=== PATIENT | female | born 1990 | race Caucasian/White ===

== ENCOUNTER → 2019-07-08 09:06 | Outpatient (CLI) | payer OTHER, SELFPAY ==
--- NOTE | 2019-07-08 09:11 | DI.US.S_ITS ---
PROCEDURE: US OB >= 14 WEEKS FETUS INDICATIONS: ANATOMY OUTSIDE/PRIOR DATING DATA: Last menstrual period (LMP): 02/13/19. LMP-based estimated date of delivery (LORI): 11/20/19. First dating scan (date and location): 07/08/19. Estimated date of delivery (LORI) from first dating scan: 11/21/19. TECHNIQUE: Real-time scanning was performed of the fetus, with image documentation and biometric measurements. Endovaginal scanning: No COMPARISON: None. FINDINGS: General: A single living intrauterine gestation is present. Presentation: Vertex. Placenta: Placental position is posterior, without previa. Amniotic fluid index: 10.3 cm, normal range is 5-24 cm. heart rate: 163 beats per minute. Maternal cervical canal: 3.8 cm long. Normal lower limit is 2.5 cm. biometrics: Biparietal diameter: 20 weeks 1 day Head circumference: 19 weeks 6 days Abdominal circumference: 20 weeks 5 days Femur length: 21 weeks Estimated gestational age from initial scan: 20 weeks 5 days Composite gestational age from present scan: 20 weeks 4 days Estimated weight and percentile: 372 g; 45th percentile Measurement variability for biometric dating: +/- 7 days from 14 weeks to 15 weeks 6 days gestation, +/- 10 days from 16 weeks to 21 weeks 6 days gestation, +/- 2 weeks from 22 weeks to 27 weeks 6 days gestation, +/- 3 weeks for 28 weeks gestation or later. weight reference: 4500 g or EFW >90/95% is considered macrosomia or large for gestational age. EFW <10% is small for gestational age. EFW 5% or less is considered intra-uterine growth restriction. Anatomic survey: Neuro: Ventricles are non-dilated at less than 10 mm. Cisterna magna is normal at 3-11 mm. Cerebellum is normal in size and morphology. Nuchal skin fold: Normal at less than 6 mm between 14-21 weeks gestational age. Face: Nose and lips, facial profile are normal. Spine: No evidence for spina bifida. Heart: 4-chambered heart is present, with normal ventricular outflow tracts. Diaphragm: Diaphragm is intact. Stomach: Left-sided stomach is present. Kidneys: Right renal pelvis is dilated to 4.6 mm. Normal left renal pelvis and kidney. Normal is less than 5 mm in 2nd trimester, less than 7 mm in 3rd trimester. Cord: 3-vessel cord has orthotopic insertion. Bladder: Normal in size. Extremities: All 4 extremities identified. IMPRESSION: Single living IUP with mean composite gestational age of 20 weeks 4 days corresponding to ultrasound LORI of 11/21/19. Prominence of the right renal pelvis; otherwise normal anatomic survey. Followup recommended. Dictated by: Jassi LOPEZ Interpreted: Lizy Sanchez MD on 07/08/2019 at 10:55 Approved by: Lizy Sanchez M.D. on 07/08/2019 at 15:59
== END ==
PROVIDERS: Visit Provider Specialist
DX: Z34.82 Encounter for supervision of other normal pregnancy, second trimester (principal); Z3A.20 20 weeks gestation of pregnancy
CPT/HCPCS: 76811

== ENCOUNTER → 2019-08-01 09:28 | Outpatient (CLI) | payer OTHER, SELFPAY ==
[2019-08-01 11:17] LABS: Hematocrit 33.3 % (36-46); Hemoglobin 11.2 g/dL (12.0-16.0)
[2019-08-01 12:05] LABS: GTT (PREG) 1 Hour PP 50gm Dose 61 mg/dL (76-139)
== END ==
PROVIDERS: Visit Provider Specialist
DX: Z34.82 Encounter for supervision of other normal pregnancy, second trimester (principal); Z3A.22 22 weeks gestation of pregnancy
CPT/HCPCS: 82950; 85014; 85018

== ENCOUNTER → 2019-08-06 17:13 | Outpatient (CLI) | payer OTHER, SELFPAY | PROVIDERS: Visit Provider Specialist | DX: R31.9 Hematuria, unspecified (principal); Z34.82 Encounter for supervision of other normal pregnancy, second trimester | CPT/HCPCS: 87077; 87086 ==

== ENCOUNTER 2019-09-30 12:47 | Observation (INO) | payer OTHER, SELFPAY ==
--- NOTE | 2019-09-30 13:15 | DI.US.S_ITS ---
PROCEDURE: US OB FOLLOW UP INDICATIONS: CERVICAL LENGTH OUTSIDE/PRIOR DATING DATA: Last menstrual period (LMP): 02/13/19. LMP-based estimated date of delivery (LORI): 11/20/19. First dating scan (date and location): 07/08/19. Estimated date of delivery (LORI) from first dating scan: 11/21/19. TECHNIQUE: Real-time scanning was performed of the fetus, with image documentation. Endovaginal scanning: For evaluation of the cervix COMPARISON: None. FINDINGS: A single living intrauterine gestation is present. Presentation: Vertex. Placenta: Placental position is posterior, without previa. Amniotic fluid index: 9.9 cm, normal range is 5-24 cm. heart rate: 155 beats per minute. Maternal cervical canal: 3.8 cm long. Normal lower limit is 2.5 cm. the cervix is closed. No funneling. Estimated gestational age from initial scan: 32 weeks, 4 days IMPRESSION: 1. Single living intrauterine in vertex presentation. 2. Closed cervix measuring up to 3.8 cm in length. 3. Normal amniotic fluid volume. Dictated by: Brielle Fierro M.D. on 09/30/2019 at 15:12 Approved by: Brielle Fierro M.D. on 09/30/2019 at 15:15
[2019-09-30 13:27] LABS: Bacteria Urine None Seen; RBC Urine None Seen (0-5/HPF)
[2019-09-30 13:29] LABS: Appearance Urine UA CLEAR; Bilirubin Urine UA NEGATIVE (NEGATIVE); Color Urine UA YELLOW; Glucose Urine UA NEGATIVE (Negative); Ketones Urine UA NEGATIVE (NEGATIVE); Leukocyte Esterase Urine UA NEGATIVE (NEGATIVE); Nitrite Urine UA NEGATIVE (Negative); Occult Blood Urine UA NEGATIVE (Negative); Protein Urine UA TRACE (Negative); Specific Gravity Urine UA 1.015 (1.000-1.035); Urobilinogen Urine UA 0.2 E.U./dL (0.2)
[2019-09-30] MEDS: ACETAMINOPHEN 325 MG TABLET 650 MG PO (13:42)
[2019-09-30 13:52] LABS: Culture Indicated Urine Cult Not Indicated; Squamous Epithelial Cell Urine 0-1 /HPF (0-5/HPF); WBC Urine 0-1/HPF (0-5/HPF); pH Urine UA 6.5 (4.5-8.0)
[2019-09-30] MEDS: MORPHINE 2 MG/ML INJ 1 MG IV (14:52)
[2019-09-30] MEDS: NIFEdipine 10 MG CAPSULE PO ×4 (14:53→16:07)
--- NOTE | 2019-09-30 15:19 | PM.OBTRLD ---
Visit Information Visit Information Date of evaluation: 09/30/19 Primary OB Provider: Ava Blanton On-call OB Provider: Xin Hlal Reason for Evaluation: Yes other Vital Signs Vital Signs: 29yo at 32w6d who presented with severe back pain. The pt reports sudden onset of back pain last night. It rhythmically waxes and wanes in intensity. She could not identify how often it occurs, but believes it is approximately every 2-3 minutes. The pain did improve enough that she was able to sleep overnight. This morning, it became severe again. She attempted to go to work, but was unable to sit at her desk and function due to the pain. She states that the pain is across her lower back. When it intensifies, she also gets an anterior pelvic pain/pressure, around her pubic symphysis, that feels like I need to push. She denies any fevers, chills, dysuria, vaginal bleeding, LOF. She does not recall any injury to her back, or sudden movements that could have precipitated the pain. Her has thus far been uncomplicated. She had no labor with her first child, who was born at term. She did not experience any back labor during the . She denies any nausea, vomiting, diarrhea, or constipation. Exam Narrative Exam Narrative: Gen: laying in bed, appears very uncomfortabe intermittently, grabbing at her back CV: RRR, no murmurs Resp: clear to auscultation bilaterally Abd: soft, gravid, nontender, nondistended Back: nontender to palpation, pressure from exam reportedly feels good, no CVA tenderness : normal external genitalia, normal appearing vaginal discharge, cervix appears pink without any erythema Ext: no edema Objective Imaging US - abdomen: Radiologist's impression: 1. Single living intrauterine in vertex presentation. 2. Closed cervix measuring up to 3.8 cm in length. 3. Normal amniotic fluid volume. Labs Labs: Laboratory Results - last 24 hr 09/30/19 13:00 Urine Color Yellow Urine Appearance Clear Urine pH 6.5 Ur Specific [place] 1.015 Urine Protein Trace H Urine Glucose (UA) Negative Urine Ketones Negative Urine Occult Blood Negative Urine Nitrate Negative Urine Bilirubin Negative Urine Urobilinogen 0.2 Ur Leukocyte Esterase Negative Urine RBC None seen Urine WBC 0-1/hpf Ur Squamous Epith Cells 0-1 /hpf Urine Bacteria None seen Ur Culture Indicated? Cult not indicated Evaluation Evaluation Baseline heart rate: 150 Variability: Moderate (11-25) monitor accelerations: Present monitor decelerations: Absent Cervical dilation (cm): 0 Cervical effacement (%): 50 station: -4 Laboratory results: Laboratory Tests 09/30/19 13:00 Urine Color Yellow Urine Appearance Clear Urine pH 6.5 Ur Specific [place] 1.015 Urine Protein Trace H Urine Glucose (UA) Negative Urine Ketones Negative Urine Occult Blood Negative Urine Nitrate Negative Urine Bilirubin Negative Urine Urobilinogen 0.2 Ur Leukocyte Esterase Negative Urine RBC None seen Urine WBC 0-1/hpf Ur Squamous Epith Cells 0-1 /hpf Urine Bacteria None seen Ur Culture Indicated? Cult not indicated Comments: external os 1cm, internal os closed Diagnosis, Plan/Disposition Final Diagnosis (1) Back pain: Current Visit: Yes Status: Acute Plan/Disposition Plan: 29yo at 32w6d presenting with severe waxing and waning back pain and associated pelvic pain. No clear etiology found. No injury. No blood on u/a to suggest nephrolithiasis, and no CVA tenderness. No significant constipation or other bowel symptoms. Cervix normal appearance, no evidence cervicitis. No contractions on monitoring, although pt did appear uncomfortable as though in labor. Cervical length not concerning, and cervix not dilated. Pt did have fibroid noted on ultrasound previously, but not noted to be pedunculated - relatively low concern for torsion of this. After discussion with Dr Becker, did receive Nifedipine x4 and IV Morphine with significant improvement in pain gradually. Pt is currently stable. Will discharge home, with plans to f/u in clinic tomorrow with Dr Blanton. PRN oxycodone-acetaminophen provided for use with severe pain. Recommend use of a heating pad and warm baths as well. OB Disposition: home
[2019-09-30] MEDS: ONDANSETRON 4 MG/2 ML INJ IV (15:31)
== END 2019-09-30 17:20 | disposition home or self-care (01) ==
PROVIDERS: Admitting Provider Specialist; Visit Provider Specialist
DX: O26.893 Other specified pregnancy related conditions, third trimester (principal); M54.9 Dorsalgia, unspecified; R10.2 Pelvic and perineal pain; Z3A.32 32 weeks gestation of pregnancy
CPT/HCPCS: 59025; 59050; 76816; 76830; 81001; 96360; G0378; G0379; J2270; J2405

== ENCOUNTER → 2019-10-01 16:57 | Outpatient (CLI) | payer OTHER, SELFPAY | PROVIDERS: Visit Provider Specialist | DX: Z34.83 Encounter for supervision of other normal pregnancy, third trimester (principal) | CPT/HCPCS: 87086 ==

== ENCOUNTER → 2019-10-22 14:33 | Outpatient (CLI) | payer OTHER, SELFPAY ==
[2019-10-23 12:40] LABS: Strep Grp B PCR NEG for Grp B Strep
== END ==
PROVIDERS: Visit Provider Specialist
DX: Z34.03 Encounter for supervision of normal first pregnancy, third trimester (principal); Z3A.36 36 weeks gestation of pregnancy
CPT/HCPCS: 87653

== ENCOUNTER 2019-11-14 04:54 | Inpatient (IN) | payer OTHER, SELFPAY ==
--- NOTE | 2019-11-14 09:11 | P.HPOB_ITS ---
OB HPI Date/Time Date of admission: 11/14/19 Date Patient Seen: 11/14/19 Time Patient Seen: 08:10 History of Present Condition Chief complaint: maternity : 2 Para: 1 Estimated Date of Delivery: 11/20/19 Estimated Gestational Age (weeks): 39 Narrative: Sharon Peterson is a 29 year old female admitted in active labor History of Present care: good care, initiated at week # (12), number of visits (11) and pounds weight gain (53) Dating criteria: LMP confirmed by 1st trimester US Ultrasounds: normal mid trimester US Obstetrical complications: none Medical complications: none Preadmission Labs Blood type: O (+) positive -: Antibody screen: negative, GBS status: negative, HBsAG: negative, HIV: negative and RPR/VDLR: negative -: Rubella: immune and Varicella: immune Sequential screen: Normal 1 hr GTT: 61 Prior (ies) History: 06/14/09 38 week gestation male vaginal delivery 6 lb 14 oz Evaluation Evaluation Baseline heart rate: 145 Variability: Moderate (11-25) monitor accelerations: Present monitor decelerations: Absent Contraction Frequency (minutes): 5 Uterine Contraction Intensity: Moderate Category of Tracing: I Cervical dilation (cm): 4 Cervical effacement (%): 90 station: -2 [facility] Social History Smoking Status: Never smoker Meds Home Medications and Allergies Allergies Allergy/AdvReac Type Severity Reaction Status Date / Time No Known Drug Allergies Allergy Verified 09/30/19 13:31 Review of Systems Review of Systems Narrative: Patient denies headaches, scotomata, epigastric pain. No leakage of fluid. Good movement. ROS Unobtainable: All systems reviewed & are unremarkable except as noted in HPI and below Exam Vital Signs (past 8 hours): Blood pressure 145/67, pulse of 97, temperature 35.8? Narrative Exam Narrative: HEENT exam within normal limits. Lungs are clear to auscultation percussion. Heart is regular rate and rhythm no S3-S4 or murmurs. Abdomen is soft, nontender. Fetus is vertex. Extremities trace edema and nontender. Objective Labs Result Diagrams: 11/14/19 10:45 Assessment and Plan Assessment and Plan Assessment and Plan narrative: 39 week gestation in early labor. Anticipate vaginal delivery
[2019-11-14 10:27] VITALS: BP 117/75
[2019-11-14] MEDS: LACTATED RINGERS 1,000 ML 100 ML IV ×2 (10:45→14:33)
[2019-11-14 11:02] LABS: Add Manual Diff / Slide Review NO; Basophils Absolute Auto 100 /uL (0-100); Basophils Percent Auto 0.8 % (0-2); Eosinophils Absolute Auto 100 /uL (0-450); Eosinophils Percent Auto 0.9 % (2-4); Hematocrit 33.3 % (36-46); Hemoglobin 11.2 g/dL (12.0-16.0); Lymphocytes Absolute Auto 1500 /uL (1100-4500); Lymphocytes Percent Auto 13.4 % (25-40); Mean Corpuscular HGB Conc 33.5 % (30-36); Mean Corpuscular Volume 83.4 fL (80-100); Monocytes Absolute Auto 800 /uL (0-900); Monocytes Percent Auto 6.8 % (3-14); Neutrophils Absolute Auto 8900 /uL (1500-7000); Neutrophils Percent Auto 78.1 % (50-75); Platelet Count 286 X10^3/uL (150-400); Red Blood Cell Count 3.99 X10^6/uL (4.0-5.2); Red Cell Distribution Width 13.9 % (11.6-14.8); White Blood Cell Count 11.4 X10^3/uL (4.5-11.0)
[2019-11-14] MEDS: OXYTOCIN PREMIX 30 UNIT/500 ML PLAST..BAG IV (15:19)
--- NOTE | 2019-11-14 18:21 | PM.OBPRVD ---
Labor & Delivery Delivery date: 11/14/19 Intrapartal events: None Cervical ripening method: none Induction method: none Delivery augmentation: pitocin Delivery monitor: external FHT and external uterine Route of delivery: L&D Laceration Description: Periurethral - 1st Degree Estimated blood loss (mL): 420 Anesthesia type: Epidural Narrative: Patient arrived on Labor and delivery in active labor. heart tones category 1 to category 2 throughout labor. Patient received an epidural catheter for pain control. She had Pitocin augmentation after her epidural due to decreasing contractions. She had minimal leakage of fluid clear. The patient delivered spontaneously, over an intact perineum. There was a small amount of shoulder dystocia that was relieved with Sheeba maneuver. The viable female infant was placed on maternal abdomen. After the cord stopped pulsating the cord was clamped, cut, and cord bloods obtained. The placenta delivered spontaneously, intact, with 3 vessels. There were no cervical, vaginal, or perineal tears. There were is a small right periurethral tear that did not require suturing. Estimated blood loss was 420 cc. Both mother doing well. [place] Baby 1: Infant gender: Female Presentation: vertex position: Right Occiput Anterior Placenta delivery description: Spontaneous cord vessel description: 3 Vessels score (1 min): 8 score (5 min): 9 Plan for aftercare: Routine care
[2019-11-14] MEDS: IBUPROFEN 600 MG TABLET PO (20:04)
[2019-11-14] MEDS: ACETAMINOPHEN 325 MG TABLET 650 MG PO (22:59)
[2019-11-14] MEDS: LANOLIN OINT 7 GM 1 APPLIC TOP (23:29)
[2019-11-14] MEDS: DERMOPLAST SPRAY 20% 60 ML 1 SPRAY TOP (23:29)
[2019-11-15] MEDS: IBUPROFEN 600 MG TABLET PO ×4 (02:53→22:36)
[2019-11-15 06:22] LABS: Hematocrit 28.4 % (36-46); Hemoglobin 9.5 g/dL (12.0-16.0)
[2019-11-15] MEDS: DOCUSATE 100 MG CAPSULE PO (09:34)
[2019-11-15] MEDS: FERROUS GLUCONATE 324 MG TABLET PO (09:34)
--- NOTE | 2019-11-15 11:52 | P.PNOB_ITS ---
Subjective - OB Subjective Patient comments: no complaints [place] baby status: doing well feeding status: exclusively breast feeding Date Patient Seen: 11/15/19 Time Patient Seen: 11:56 Interval history: Patient is day 1 spontaneous vaginal delivery. She is doing very well. She is concerned about how is going. She denies any headaches, scotomata, epigastric pain. She is urinating well and ambulatory. The ibuprofen is helping with the cramping. Exam Vital Signs (past 8 hours): Blood pressure 113/75, pulse of 83, temperature 97.2? Narrative Exam Narrative: Abdomen is soft, nontender. Uterus is firm, at U, nontender. Mild lochia. Extremities without edema and nontender. Patient's blood type is O positive, she is rubella immune, she received Tdap in the 3rd trimester. Objective Labs Result Diagrams: 11/15/19 06:10 Labs: Laboratory Results - last 24 hr 11/14/19 11/15/19 10:45 06:10 Hgb 9.5 L Hct 28.4 L Blood Type O Positive Antibody Screen Negative Assessment & Plan Assessment and Plan (1) Vaginal delivery: Status: Acute Current Visit: Yes (2) Acute blood loss anemia: Status: Acute Current Visit: Yes Plan day: 1 plan OB: routine care Comments: Anticipate discharge home today if baby is able to the nurse well. Routine precautions and follow-up were discussed with the patient. Time Spent With Patient Time: Total time spent is greater than 50% in coordination of care (as documented) at patient's floor/unit and/or counseling patient: Time with patient: less than 15 minutes
[2019-11-15] MEDS: ACETAMINOPHEN 325 MG TABLET 650 MG PO (20:03)
[2019-11-16] MEDS: ACETAMINOPHEN 325 MG TABLET 650 MG PO ×2 (02:16→08:27)
[2019-11-16] MEDS: IBUPROFEN 600 MG TABLET PO (04:07)
[2019-11-16] MEDS: FERROUS GLUCONATE 324 MG TABLET PO (08:23)
[2019-11-16] MEDS: DOCUSATE 100 MG CAPSULE PO (08:23)
[2019-11-16 08:27] VITALS: TEMP 36.2
--- NOTE | 2019-11-16 10:47 | PM.OBDS.1 ---
Discharge Providers Provider Date of admission: 11/14/19 04:54 Discharge Date: 11/16/19 Consults: 11/14/19 10:25 Consult to Anesthesiology Urgent Comment: Consulting Provider: Anesthesiologist Reason for consultation: Epidural Has provider been notified: No 11/15/19 18:19 Consult to Kettle Loader Routine Comment: Discharge provider: Ava Blanton MD Summary Hospital Course Date Patient Seen: 11/16/19 Time Patient Seen: 10:47 Procedures: Epidural catheter, vaginal delivery Hospital Course: Patient arrived in Labor and delivery in active labor. She received an epidural catheter for pain control. She did not need any sutures for repair. She did well . She denies any headache, scotomata, epigastric pain. She is urinating and ambulating well. Peripartum Data Infant Delivery Method: Natural Vaginal Laceration description: None complications: none 1: Gender: Female Disposition of : home Discharge Diagnosis (1) Vaginal delivery: Status: Acute (2) Acute blood loss anemia: Status: Acute Status at Discharge Cognitive/behavioral status at discharge: oriented Functional status at discharge: independent ambulation Overall status at discharge: patient is progressing back to baseline Time Spent with Patient Time attestation: Total time spent providing and/or coordinating discharge services: Time spent: Less than 30 minutes Objective Labs Result Diagrams: 11/15/19 06:10 Exam Vital Signs (past 8 hours): Blood pressure 112/77, pulse 73, temperature 97.1- 11/16/19 08:27 Temperature 97.1 F L Narrative Exam Narrative: Abdomen is soft, nontender. Uterus is firm, U -1, mildly tender. Mild lochia. Extremities without edema and nontender. Patient is O positive and rubella immune she just received Tdap in the 3rd trimester. Discharge Plan Discharge Plan Patient Disposition: Home Discharge orders & Medications Prescriptions: New docusate sodium [DOK] 100 mg Capsule 100 mg PO DAILY Qty: 30 RF: 0 ibuprofen 600 mg Tablet 600 mg PO Q6HR PRN (Reason: Pain, Mild (1-3)) Qty: 30 RF: 0 ferrous gluconate 324 mg (38 mg iron) Tablet 324 mg PO DAILY Qty: 30 RF: 0 Follow up/Referrals: Ava Blanton MD [Physician] - 1 Month Diet/Activity/Treatments Diet: Regular Activity: Nothing in vagina for 4 weeks Skin/Wound/Dressing Care Report to your healthcare provider any signs of infection, such as:: chills, fever and increased pain
[2019-11-16 10:54] VITALS: BP 117/75; PULSE 73; RESP 17; TEMP 36.2
== END 2019-11-16 12:30 | disposition home or self-care (01) | DRG 806 ==
PROVIDERS: Admitting Provider Specialist; Visit Provider Specialist
DX: O62.0 Primary inadequate contractions (principal); D62 Acute posthemorrhagic anemia; Z37.0 Single live birth; Z3A.39 39 weeks gestation of pregnancy
CPT/HCPCS: 36415; 59050; 59410; 85014; 85018; 85025; 86850; 86900; 86901; G0379; J2590